=== PATIENT | female | born 1980 | race Two or more races ===

== ENCOUNTER 2024-01-14 10:12 | Emergency (ER) | payer MEDICAID, OTHER ==
[~2024-01-14] VITALS: Ht 157.5 cm; Wt 69.2 kg
[2024-01-14 11:23] LABS: Urine Bacteria FEW /hpf (None Seen); Urine Blood Negative /uL (Negative); Urine Clarity Clear (Clear); Urine Color Yellow (Yellow); Urine Mucus FEW (None Seen); Urine Protein, UAD Negative (Negative); Urine Specific Gravity 1.027 (1.001-1.035); Urine Urobilinogen Normal (Negative); Urine WBC 1 /hpf (0 - 5); Urine pH 5.5 (5.0-9.0)
[2024-01-14 12:34] VITALS: BP 158/84; PULSE 60; RESP 18; O2SAT 99
== END 2024-01-14 12:37 | disposition home or self-care (01) ==
LOC: ER 10:12
DX: R10.9 Unspecified abdominal pain (principal); Z98.890 Other specified postprocedural states
CPT/HCPCS: 74176; 81001; 81025

== ENCOUNTER 2024-05-28 08:50 | Inpatient (IN) | payer MEDICAID ==
[~2024-05-28] VITALS: Ht 160 cm; Wt 78.7 kg
--- NOTE | 2024-05-28 09:33 | ED.PDOC ---
GI ASSESSMENT HPI Comments 43-year-old female presents with a chief complaint of abdominal pain x onset 2 days. Patient states that her abdomen pain is localized to her epigastric region, nonradiating, and describes as cramping sensation. Patient denies any nausea, vomiting, diarrhea, rectal bleeding, or hemoptysis. Patient also denies any injuries or trauma prior to onset of symptoms. Chief Complaint: Abdominal Pain Time Seen by MD: 08:57 Primary Care Provider: DARIN Rodriguez Notes: Medications, Allergies Allergies: Coded Allergies: NO KNOWN ALLERGIES (Unverified , 01/14/24) Information Source: Patient Mode of Arrival: Ambulatory Timing: Days Duration: Since onset Prehospital treatment: None Quality: Aching Vomitus: None Stool: Normal Severity: Moderate Recent: None Recent Hx of: None Pain Location: Epigastric Associated sign and symptoms: Abdominal Pain Past Medical History PAST MEDICAL HISTORY: Denies Surgical History: , Hysterectomy, Tonsillectomy [employer] History: No Pertinent [employer] History Family History Family History: Family hx of DM, Family hx of heart francisco Family History (Other): Liver disease Social History Smoker: Non-Smoker Alcohol: Denies ETOH Use Drugs: Denies Drug Use Lives In: Other Constitutional: denies: chills, diaphoresis, fatigue, fever, malaise, sweats, weakness, others EENTM: denies: blurred vision, double vision, ear bleeding, ear discharge, ear drainage, ear pain, ear ringing, eye pain, eye redness, hearing loss, mouth pain, mouth swelling, nasal discharge, nose bleeding, nose congestion, nose pain, photophobia, tearing, throat pain, throat swelling, voice changes, others Respiratory: denies: cough, hemoptysis, orthopnea, SOB at rest, shortness of breath, SOB with excertion, stridor, wheezing, others Cardiovascular: denies: chest pain, dizzy spells, diaphoresis, Dyspnea on exertion, edema, irregular heart beat, left arm pain, lightheadedness, palpitations, PND, syncope, others Gastrointestinal: reports: abdominal pain; denies: abdomen distended, blood streaked bowels, constipated, diarrhea, dysphagia, difficulty swallowing, hematemesis, melena, nausea, poor appetite, poor fluid intake, rectal bleeding, rectal pain, vomiting, others Genitourinary: denies: abnormal vagina bleeding, burning, dyspareunia, dysuria, flank pain, frequency, hematuria, incontinence, pain, , vagina discharge, urgency, others Neurological: denies: dizziness, fainting, headache, left sided numbness, left sided weakness, numbness, paresthesia, pre-existing deficit, right sided numbness, right sided weakness, seizure, speech problems, tingling, tremors, weakness, others Musculoskeletal: denies: back pain, gout, joint pain, joint swelling, muscle pain, muscle stiffness, neck pain, others Integumetry: denies: bruises, change in color, change in hair/nails, dryness, laceration, lesions, lumps, rash, wounds, others Allergic/Immunocompromised: denies: Difficulty Healing, Frequent Infections, Hives, Itching, others Hematologic/Lymphatic: denies: anemia, blood clots, easy bleeding, easy bruising, swollen glands, others Endocrine: denies: excessive hunger, excessive sweating, excessive thirst, excessive urination, flushing, intolerance to cold, intolerance to heat, unexplained weight gain, unexplained weight loss, others Psychiatric: denies: anxiety, bipolar disorder, depression, hopeless, panic disorder, schizophrenia, sleepless, suicidal, others All Other Systems: Reviewed and Negative Physical Exam General Appearance: Moderate Distress, Normal HEENT: Normal ENT Inspection, Pharynx Normal, TMs Normal Neck: Full Range of Motion, Non-Tender, Normal, Normal Inspection Respiratory: Chest Non-Tender, Lungs Clear, No Accessory Muscle Use, No Respiratory Distress, Normal Breath Sounds Cardiovascular: No Edema, No JVD, No Murmur, No Gallop, Normal Peripheral Pulses, Regular Rate/Rhythm Breast Exam: Deferred Gastrointestinal: No Organomegaly, Non Tender, No Pulsatile Mass, Normal Bowel Sounds, Soft Genitalia: Deferred Pelvic: Deferred Rectal: Deferred Extremities: No calf tenderness, Normal capillary refill, Normal inspection, Normal range of motion, Non-tender, No pedal edema Musculoskeletal : Apperance: Normal Neurologic: Alert, knife glazer II-XII nml as Tested, No Motor Deficits, Normal Affect, Normal Mood, No Sensory Deficits Cerebellar Function: Normal Reflexes: Normal Skin: Dry, Normal Color, Warm Peripheral Pulses: 3+ Radial (R), 3+ Radial (L) Lymphatic: No Adenopathy Was a procedure done? Was a procedure done?: No GI differential Dx Differential Diagnosis: Constipation, Diverticular disease, Esophagitis, Gastritis/PUD, Gastroenteritis X-Ray, Labs, Meds, VS Vital Signs Date Time Temp Pulse Resp B/P (MAP) Pulse Ox O2 Delivery O2 Flow Rate FiO2 05/28/24 09:06 97.2 60 19 133/85 (101) 99 Lab Test 05/28/24 10:30 05/28/24 09:39 Range/Units Urine Color Yellow Yellow Urine Clarity Clear Clear Urine pH 5.5 5.0-9.0 Urine Specific [place] 1.027 1.001-1.035 Urine Protein Negative Negative Urine Ketones Negative Negative Urine Blood Negative Negative /uL Urine Nitrite Negative Negative Urine Bilirubin Negative Negative Urine Urobilinogen Normal Negative mg/dL Urine Leukocyte Esterase Trace Negative /uL Urine RBC 1 0 - 4 /hpf Urine Microscopic WBC 2 0-5 /HPF Urine Squamous Epithelial Cells Few <5 /hpf Urine Bacteria Few H None Seen /hpf Urine Mucus Few None Seen Urine Glucose Normal Normal mg/dL Urine Test Negative Negative White Blood Count 8.7 4.4-10.8 10^3/uL Red Blood Count 4.98 4.0-5.20 10^6/uL Hemoglobin 14.7 12.2-16.2 g/dL Hematocrit 44.0 36.0-46.0 % Mean Corpuscular Volume 88.2 80.0-100.0 fL Mean Corpuscular Hemoglobin 29.4 28.0-32.0 pg Mean Corpuscular Hemoglobin Concent 33.3 32.0-36.0 g/dL Red Cell Distribution Width 13.1 11.8-14.3 % Platelet Count 364 140-450 10^3/uL Mean Platelet Volume 8.9 6.9-10.8 fL Neutrophils (%) (Auto) 53.6 37.0-80.0 % Lymphocytes (%) (Auto) 31.1 10.0-50.0 % Monocytes (%) (Auto) 6.4 0.0-12.0 % Eosinophils (%) (Auto) 8.4 H 0.0-7.0 % Basophils (%) (Auto) 0.5 0.0-2.0 % Neutrophils # (Auto) 4.6 1.6-8.6 10 ^3/uL Lymphocytes # (Auto) 2.7 0.4-5.4 10 ^3/uL Monocytes # (Auto) 0.6 0-1.3 10 ^3/uL Eosinophils # (Auto) 0.7 0-0.8 10 ^3/uL Basophils # (Auto) 0 0-0.2 10 ^3/uL Nucleated Red Blood Cells 0.2 % Sodium Level 139 136-145 mmol/L Potassium Level 4.5 3.5-5.1 mmol/L Chloride Level 107 98-107 mmol/L Carbon Dioxide Level 23 20-31 mmol/L Anion Gap 9 5-15 Blood Urea Nitrogen 11 9-23 mg/dL Creatinine 0.60 0.550-1.02 mg/dL Glomerular Filtration Rate Calc 116 >90 mL/min BUN/Creatinine Ratio 18.3 10.0-20.0 Serum Glucose 97 74-106 mg/dL Calcium Level 9.4 8.7-10.4 mg/dL Patient alert. Complaining of abdominal discomfort. Ambulating. Vitals stable. Answering all questions. Abdomen is soft nontender. Possible gastritis. Explained to the patient. Continue monitoring. Time of 1ST Reevaluation: 09:35 Reevaluation 1ST: Unchanged Patient Education/Counseling: Diagnosis, Treatment, Prognosis Family Education/Counseling: Diagnosis, Treatment, Prognosis Departure 1 Departure Time of Disposition: 09:36 Impression: Primary Impression: Nonspecific abdominal pain Additional Impression: Gastritis Qualified Codes: K29.00 - Acute gastritis without bleeding Disposition: ADMITTED INPATIENT Admit to: Med Surg Condition: Guarded Critical Care Note Critical Care Time?: No Stability Stability form required: No Heart Score Heart Score: Heart Score Response (Comments) Value History N/A 0 EKG N/A 0 Age N/A 0 Risk Factors N/A 0 Troponin N/A 0 Total 0 I personally scribed for MAIKOL JAIN MD ([email or web address]) on 05/28/24 at 09:33. E lectronically submitted by Marc Forte ([email or web address]). MAIOKL JAIN MD May 28, 2024 09:33
[2024-05-28 10:16] LABS: Basophils # (auto) 0 10 ^3/uL (0-0.2); Basophils % (auto) 0.5 % (0.0-2.0); Eosinophils # (auto) 0.7 10 ^3/uL (0-0.8); Eosinophils % (auto) 8.4 % (0.0-7.0); Hemoglobin 14.7 g/dL (12.2-16.2); Lymphocytes # (auto) 2.7 10 ^3/uL (0.4-5.4); Lymphocytes % (auto) 31.1 % (10.0-50.0); Mean Corpuscular Hemoglobin 29.4 pg (28.0-32.0); Mean Corpuscular Hgb Conc. 33.3 g/dL (32.0-36.0); Mean Corpuscular Volume 88.2 fL (80.0-100.0); Monocytes # (auto) 0.6 10 ^3/uL (0-1.3); Monocytes % (auto) 6.4 % (0.0-12.0); Neutrophils # (auto) 4.6 10 ^3/uL (1.6-8.6); Neutrophils % (auto) 53.6 % (37.0-80.0); Nucleated Red Blood Cells % 0.2 %; Platelet Count (auto) 364 10^3/uL (140-450); Red Blood Cells 4.98 10^6/uL (4.0-5.20); Red Cell Distribution Width 13.1 % (11.8-14.3); White Blood Cell 8.7 10^3/uL (4.4-10.8)
[2024-05-28 10:23] LABS: Potassium 4.5 mmol/L (3.5-5.1); Sodium 139 mmol/L (136-145)
[2024-05-28 10:24] LABS: Anion Gap 9 (5-15); Calcium 9.4 mg/dL (8.7-10.4); Carbon Dioxide 23 mmol/L (20-31)
[2024-05-28 10:29] LABS: BUN/Creatinine Ratio 18.3 (10.0-20.0); Blood Urea Nitrogen 11 mg/dL (9-23); Glucose 97 mg/dL (74-106)
[2024-05-28 10:39] LABS: Chloride 107 mmol/L (98-107)
[2024-05-28 10:58] LABS: Urine Bacteria FEW /hpf (None Seen); Urine Blood Negative /uL (Negative); Urine Clarity Clear (Clear); Urine Color Yellow (Yellow); Urine Mucus FEW (None Seen); Urine Protein, UAD Negative (Negative); Urine Specific Gravity 1.027 (1.001-1.035); Urine Squamous Epithelial Cell FEW /hpf (<5); Urine Urobilinogen Normal (Negative); Urine WBC 2 /HPF (0-5); Urine pH 5.5 (5.0-9.0)
--- NOTE | 2024-05-28 11:24 | DVH ---
Procedure: XY CHEST XRAY 1 VIEW 05/28/2024 11:10 AM Indication: r/o serious pathology Comparison: None TECHNIQUE: XY CHEST XRAY 1 VIEW FINDINGS: Medical devices: None. Cardiomediastinal: The heart is normal in size. Pulmonary vasculature is within normal limits. Athero sclerotic calcification of the aortic arch noted. Lungs: No focal pulmonary opacity is seen. The costophrenic angles are clear. No pneumothorax. Bones/soft tissues: No acute abnormality is noted. IMPRESSION: 1. No acute cardiopulmonary disease.
--- NOTE | 2024-05-28 12:00 | DVH ---
Procedure: CT CT AB PEL WO CON-NO ORAL OR IV 05/28/2024 11:02 AM Indication: gastritisvsstone Comparison Study: CT CT AB PEL WO CON-NO ORAL OR IV on DOS: 01/14/24 Technique: Axial images were obtained and reformatted in coronal and sagittal planes. All CT scans at this medical facility are performed using dose modulation techniques as appropriate t o a performed exam including the following: Automated exposure control was utilized; adjustment of th e MA and/or KV according to patient size; and use of iterative reconstruction technique. CT Dose: CTDI volume is 21.68 mGy. Dose-length product is 1146.55 mGy*cm FINDINGS: Lower Chest: Unremarkable. Hepatobiliary: Hepatomegaly and hepatic steatosis. Gallbladder is moderately distended and contains n umerous subcentimeter gallstones. The common bile duct is borderline dilated Spleen: Unremarkable. Pancreas: Unremarkable. Adrenal Glands: Unremarkable. tract: The kidneys are normal in size bilaterally without hydronephrosis or nephrolithiasis. The urinary bladder is unremarkable. GI tract: The stomach is grossly normal in appearance. No evidence of small bowel obstruction. The la rge bowel is unremarkable. The appendix is normal. Lymphatics: No mesenteric, retroperitoneal or periportal lymphadenopathy. Vasculature: The abdominal aorta is normal in in caliber. Pelvic Organs: Unremarkable Bones/soft tissues: No acute osseous abnormality. A small fat-containing umbilical hernia noted. Other: None. IMPRESSION: 1. Cholelithiasis and suggestion of choledocholithiasis. No signs of cholecystitis. Recommend furth er evaluation with gallbladder ultrasound and correlation with bilirubin level. If there is concern f or choledocholithiasis, further evaluation with MRCP could be helpful. 2. Hepatomegaly and hepatic steatosis.
[2024-05-28] MEDS ORDERED: ONDANSETRON HCL 4 MG/2 ML VIAL IV PRN (13:45)
[2024-05-28] MEDS ORDERED: DOCUSATE SOD 100 MG CAP PO PRN (13:45)
--- NOTE | 2024-05-28 13:59 | DVHHP2 ---
History of Present Illness Reason for Visit: Abdominal pain History of Present Illness Isadora Cameron, is a 43-year-old female with no significant past medical history, who comes to the hospital with complaints of abdominal pain for 2 days. Patient states that she has been experiencing increasing abdominal pain over the past few weeks. She knows that she has gallstones, but they haven't been bothering her until recently. Past Surgical History: (x 2), Hysterectomy, Tonsillectomy Smoke: No ALCOHOL: none Drugs: None Lives: Other ([facility]) Review of Systems Constitutional: No: Fever, Chills, Sweats, Weakness, Malaise, Other Eyes: No: Pain, Vision change, Conjunctivae inflammation, Eyelid inflammation, Other, Redness ENT: No: Ear pain, Ear discharge, Nose pain, Nose discharge, Nose congestion, Mouth pain, Mouth swelling, Throat pain, Throat swelling, Other Respiratory: No: Cough, Dry, Shortness of breath, SOB with excertion, Wheezing, Hemoptysis, Pleuritic Pain, Sputum, Wheezing, Other Cardiovascular: No: Chest Pain, Palpitations, Orthopnea, Paroxysmal Noc. Dyspnea, Edema, Lt Headedness, Other Gastrointestinal: Abdominal Pain; No: Nausea, Vomiting, Diarrhea, Constipation, Melena, Hematochezia, Other Genitourinary: No Dysuria, No Frequency, No Incontinence, No Hematuria, No Retention, No Other Musculoskeletal: No: other, neck pain, shoulder pain, arm pain, back pain, hand pain, leg pain, foot pain Skin: No: Rash, Lesions, Jaundice, Bruising, Other Neurological: No: Weakness, Numbness, Incoordination, Change in speech, Confusion, Seizures, Other Allergies: Coded Allergies: NO KNOWN ALLERGIES (Unverified , 01/14/24) Exam Vital Signs Vital Signs Date Time Temp Pulse Resp B/P (MAP) Pulse Ox O2 Delivery O2 Flow Rate FiO2 05/28/24 09:06 97.2 60 19 133/85 (101) 99 General Appearance: Alert, Oriented X3, Cooperative, mild distress HEENT: Atraumatic, PERRLA, Other (dry mucous mem) Respiratory: Clear to auscultation, Normal air movement Cardiovascular: Regular rate, Normal S1, Normal S2, No murmurs Abdominal: Normal bowel sounds, Soft, Other (Abdomen is tender) Extremities: No clubbing, No cyanosis, No edema, Normal pulses, No tenderness /swelling Skin: No rashes, No breakdown, No significant lesion Neuro: Normal gait, Normal speech, Strength at 5/5 X4 ext Psych/Mental Status: Mental status NL, Mood NL Labs/Xrays Labs Test 05/28/24 10:30 05/28/24 09:39 Range/Units Urine Color Yellow Yellow Urine Clarity Clear Clear Urine pH 5.5 5.0-9.0 Urine Specific [place] 1.027 1.001-1.035 Urine Protein Negative Negative Urine Ketones Negative Negative Urine Blood Negative Negative /uL Urine Nitrite Negative Negative Urine Bilirubin Negative Negative Urine Urobilinogen Normal Negative mg/dL Urine Leukocyte Esterase Trace Negative /uL Urine RBC 1 0 - 4 /hpf Urine Microscopic WBC 2 0-5 /HPF Urine Squamous Epithelial Cells Few <5 /hpf Urine Bacteria Few H None Seen /hpf Urine Mucus Few None Seen Urine Glucose Normal Normal mg/dL Urine Test Negative Negative White Blood Count 8.7 4.4-10.8 10^3/uL Red Blood Count 4.98 4.0-5.20 10^6/uL Hemoglobin 14.7 12.2-16.2 g/dL Hematocrit 44.0 36.0-46.0 % Mean Corpuscular Volume 88.2 80.0-100.0 fL Mean Corpuscular Hemoglobin 29.4 28.0-32.0 pg Mean Corpuscular Hemoglobin Concent 33.3 32.0-36.0 g/dL Red Cell Distribution Width 13.1 11.8-14.3 % Platelet Count 364 140-450 10^3/uL Mean Platelet Volume 8.9 6.9-10.8 fL Neutrophils (%) (Auto) 53.6 37.0-80.0 % Lymphocytes (%) (Auto) 31.1 10.0-50.0 % Monocytes (%) (Auto) 6.4 0.0-12.0 % Eosinophils (%) (Auto) 8.4 H 0.0-7.0 % Basophils (%) (Auto) 0.5 0.0-2.0 % Neutrophils # (Auto) 4.6 1.6-8.6 10 ^3/uL Lymphocytes # (Auto) 2.7 0.4-5.4 10 ^3/uL Monocytes # (Auto) 0.6 0-1.3 10 ^3/uL Eosinophils # (Auto) 0.7 0-0.8 10 ^3/uL Basophils # (Auto) 0 0-0.2 10 ^3/uL Nucleated Red Blood Cells 0.2 % Sodium Level 139 136-145 mmol/L Potassium Level 4.5 3.5-5.1 mmol/L Chloride Level 107 98-107 mmol/L Carbon Dioxide Level 23 20-31 mmol/L Anion Gap 9 5-15 Blood Urea Nitrogen 11 9-23 mg/dL Creatinine 0.60 0.550-1.02 mg/dL Glomerular Filtration Rate Calc 116 >90 mL/min BUN/Creatinine Ratio 18.3 10.0-20.0 Serum Glucose 97 74-106 mg/dL Calcium Level 9.4 8.7-10.4 mg/dL TECHNIQUE: XY CHEST XRAY 1 VIEW FINDINGS: Medical devices: None. Cardiomediastinal: The heart is normal in size. Pulmonary vasculature is within normal limits. Atherosclerotic calcification of the aortic arch noted. Lungs: No focal pulmonary opacity is seen. The costophrenic angles are clear. No pneumothorax. Bones/soft tissues: No acute abnormality is noted. IMPRESSION: 1. No acute cardiopulmonary disease. Procedure: CT CT AB PEL WO CON-NO ORAL OR IV 05/28/2024 11:02 AM FINDINGS: Lower Chest: Unremarkable. Hepatobiliary: Hepatomegaly and hepatic steatosis. Gallbladder is moderately distended and contains numerous subcentimeter gallstones. The common bile duct is borderline dilated Spleen: Unremarkable. Pancreas: Unremarkable. Adrenal Glands: Unremarkable. tract: The kidneys are normal in size bilaterally without hydronephrosis or nephrolithiasis. The urinary bladder is unremarkable. GI tract: The stomach is grossly normal in appearance. No evidence of small bowel obstruction. The large bowel is unremarkable. The appendix is normal. Lymphatics: No mesenteric, retroperitoneal or periportal lymphadenopathy. Vasculature: The abdominal aorta is normal in in caliber. Pelvic Organs: Unremarkable Bones/soft tissues: No acute osseous abnormality. A small fat-containing umbilical hernia noted. Other: None. IMPRESSION: 1. Cholelithiasis and suggestion of choledocholithiasis. No signs of cholecystitis. Recommend further evaluation with gallbladder ultrasound and correlation with bilirubin level. If there is concern for choledocholithiasis, further evaluation with MRCP could be helpful. 2. Hepatomegaly and hepatic steatosis. Assessment/Plan Assessment/Plan Assessment: Cholelithiasis, Possible Choledocholithiasis, Hepatomegaly, Hepatic steatosis, Plan: Admit to Med-Surg, GI consult, Gallbladder ultrasound, Consider MRCP, IV hydration, Clear liquid diet, Pain management, CMP, Plan discussed with: Patient My Orders Orders - DEMETRIUS LEAL Procedure Category Date Status Time Gallbladder US 05/28/24 Logged 13:18 Admit ADMIT 05/28/24 Verified 13:41 Code Status CODE 05/28/24 Verified 13:41 Sodium Chloride Lock PHA 05/28/24 Verified (Saline Lock Ns) 14:00 Hydrocodone-Acet PHA 05/28/24 Verified 5/325mg Tab ([place] 13:45 Ondansetron Hcl PHA 05/28/24 Verified (Zofran) 13:45 Docusate Sodium PHA 05/28/24 Verified Capsule ([place]ace 13:45 Complete Blood Count LAB 05/29/24 Verified 04:00 Comprehensive LAB 05/29/24 Verified Metabolic Panel 04:00 Condition: Serious SULY 05/28/24 Verified 13:41 Acetaminophen Tablet PHA 05/28/24 Verified (Tylenol Tablet) 13:45 * Gi [facility]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
--- NOTE | 2024-05-28 14:27 | DVH ---
INDICATION: Possible choledocholithiasis TECHNIQUE: Multiple real-time sonographic images of the abdomen were obtained. COMPARISON: None FINDINGS: Hepatic parenchyma suggests steatosis The liver measures 17.2 cm. No intrahepatic biliary ductal dilatation is noted. The gallbladder wall measures 0.14 cm cm and is unremarkable. Cholelithiasis is noted which mobile. There is also sludge in the gallbladder. The common duct measures 0.93 cm and is dilated.. No per icholecystic fluid is noted. Negative ultrasound Barron's sign The right kidney measures 9.3 cm. No hydronephrosis. The pancreas is normal. IMPRESSION: 1. Cholelithiasis and sludge in the gallbladder with mild dilatation of the common bile duct and a ne gative ultrasound barron's sign. 2. Right kidney measures 9.3 cm in length. 3. Liver measures 17.2 cm with mild steatosis.
[2024-05-28 14:39] LABS: Alanine Aminotransferase 25 U/L (7-40); Albumin 4.5 g/dL (3.2-4.8); Anion Gap 7 (5-15); Aspartate Aminotransferase 17 U/L (13-40); BUN/Creatinine Ratio 14.5 (10.0-20.0); Bilirubin, Total 0.7 mg/dL (0.2-1.0); Calcium 9.5 mg/dL (8.7-10.4); Carbon Dioxide 25 mmol/L (20-31); Glucose 92 mg/dL (74-106); Sodium 140 mmol/L (136-145); Total Protein 7.3 g/dL (5.7-8.2)
[2024-05-28 14:45] LABS: Alkaline Phosphatase 127 U/L (46-116); Blood Urea Nitrogen 9 mg/dL (9-23); Chloride 108 mmol/L (98-107)
[2024-05-28 14:54] VITALS: BP 142/77; PULSE 53; RESP 18; TEMP 98; O2SAT 99
[2024-05-28 16:49] VITALS: BP 142/84; PULSE 55; RESP 18; TEMP 97.6; O2SAT 100
[2024-05-28] MEDS: SODIUM CHLOR 0.9% PF (SALINE LOCK) 10ML VIAL/SYR IV SCH (18:43)
[2024-05-28 20:00] VITALS: BP 147/76; PULSE 56; RESP 17; TEMP 97.6; O2SAT 100
[2024-05-28 22:47] VITALS: BP 134/76; PULSE 57; RESP 20; TEMP 98; O2SAT 97
[2024-05-28] MEDS: HYDROcodone-ACET 5/325MG TAB PO PRN (23:30)
[2024-05-28] MEDS: ACETAMINOPHEN 325 MG TAB PO PRN (23:38)
[2024-05-29 01:00] VITALS: BP 111/66; PULSE 57; RESP 19; TEMP 97.4; O2SAT 94
[2024-05-29 01:25] VITALS: BP 141/88; PULSE 76; RESP 19; TEMP 97.6; O2SAT 96
[2024-05-29 05:00] VITALS: BP 108/70; PULSE 60; RESP 17; TEMP 97.3; O2SAT 94
[2024-05-29 05:48] LABS: Basophils # (auto) 0 10 ^3/uL (0-0.2); Basophils % (auto) 0.4 % (0.0-2.0); Eosinophils # (auto) 0.7 10 ^3/uL (0-0.8); Eosinophils % (auto) 9.2 % (0.0-7.0); Hematocrit 42.5 % (36.0-46.0); Hemoglobin 14.1 g/dL (12.2-16.2); Lymphocytes % (auto) 26.6 % (10.0-50.0); Mean Corpuscular Hemoglobin 29.3 pg (28.0-32.0); Mean Corpuscular Hgb Conc. 33.2 g/dL (32.0-36.0); Mean Corpuscular Volume 88.1 fL (80.0-100.0); Monocytes # (auto) 0.7 10 ^3/uL (0-1.3); Monocytes % (auto) 9.1 % (0.0-12.0); Neutrophils # (auto) 4.1 10 ^3/uL (1.6-8.6); Neutrophils % (auto) 54.7 % (37.0-80.0); Platelet Count (auto) 340 10^3/uL (140-450); Red Blood Cells 4.82 10^6/uL (4.0-5.20); Red Cell Distribution Width 12.9 % (11.8-14.3); White Blood Cell 7.4 10^3/uL (4.4-10.8)
[2024-05-29 06:07] LABS: Alanine Aminotransferase 24 U/L (7-40); Albumin 4.1 g/dL (3.2-4.8); Alkaline Phosphatase 115 U/L (46-116); Anion Gap 9 (5-15); Aspartate Aminotransferase 15 U/L (13-40); BUN/Creatinine Ratio 16.4 (10.0-20.0); Blood Urea Nitrogen 10 mg/dL (9-23); Calcium 9.2 mg/dL (8.7-10.4); Carbon Dioxide 23 mmol/L (20-31); Glucose 91 mg/dL (74-106); Potassium 3.8 mmol/L (3.5-5.1); Sodium 140 mmol/L (136-145); Total Protein 6.4 g/dL (5.7-8.2)
[2024-05-29 06:20] LABS: Chloride 108 mmol/L (98-107)
[2024-05-29 09:00] VITALS: BP 139/76; PULSE 61; RESP 16; TEMP 97.6; O2SAT 93
--- NOTE | 2024-05-29 11:24 | DVHCONRES ---
Date Seen: May 29, 2024 Resident Creating Document: MELY BAKER RESIDENT Referring Physician bogdan AVENDANO Reason for Consultation Choledocholithiasis? History of Present Illness Patient is a 43 year female with came to the hospital with a chief complaint of abdominal pain for the past 3-4 days. Abdominal pain is located in upper epigastric region, pain worsens with food intake. GI consultation was done for rule out choledocholithiasis. Gallbladder showed Cholelithiasis and sludge in the gallbladder with mild dilatation of the common bile duct and a negative ultrasound chang's sign. Patient denied any other complaints including nausea, vomiting, diarrhea, fever, chills, chest pain, any other symptoms. Past medical history: Gallstone Past surgical history: , hysterectomy, tonsillectomy Personal history: Denying alcohol use, nonsmoker, no drug use. Allergies: Coded Allergies: NO KNOWN ALLERGIES (Unverified , 01/14/24) Current Medications Current Medications Medications (Trade) Dose Ordered Sig/Jenniffer Route PRN Reason Start Time Stop Time Status Last Admin Sodium Chloride (Saline Lock Ns) 10 ml Q8HR IV 05/28/24 14:00 05/29/24 05:31 Acetaminophen/ Hydrocodone Bitart ([place] 5/325MG Tab) 1 tab Q4HP PRN PO MODERATE PAIN (4-6 PAIN SCALE) 05/28/24 13:45 Ondansetron HCl (Zofran) 4 mg Q4HP PRN IV NAUSEA / VOMITING 05/28/24 13:45 Docusate Sodium (Colace Capsule) 100 mg BIDPRN PRN PO FOR CONSTIPATION 05/28/24 13:45 Acetaminophen (Tylenol Tablet) 650 mg Q6HP PRN PO PAIN SCALE 1-3 OR TEMP>100.4 05/28/24 13:45 05/29/24 10:30 Review of Systems Eyes: No Pain, No Vision change, No Conjunctivae inflammation, No Eyelid inflammation, No Other, No Redness ENT: No Ear pain, No Ear discharge, No Nose pain, No Nose discharge, No Nose congestion, No Mouth pain, No Mouth swelling, No Throat pain, No Throat swelling, No Other Cardiovascular: No Chest Pain, No Palpitations, No Orthopnea, No Paroxysmal Noc. Dyspnea, No Edema, No Lt Headedness, No Other Respiratory: No Cough, No Dry, No Shortness of breath, No SOB with excertion, No Wheezing, No Hemoptysis, No Pleuritic Pain, No Sputum, No Other Gastrointestinal: No Nausea, No Vomiting, Abdominal Pain, No Diarrhea, No Constipation, No Melena, No Hematochezia, No Other Genitourinary: No Dysuria, No Frequency, No Incontinence, No Hematuria, No Retention, No Other Musculoskeletal: No other, No neck pain, No shoulder pain, No arm pain, No back pain, No hand pain, No leg pain, No foot pain Skin: No Rash, No Lesions, No Jaundice, No Bruising, No Other Vital Signs Vital Signs Date Time Temp Pulse Resp B/P (MAP) Pulse Ox O2 Delivery O2 Flow Rate FiO2 05/29/24 09:00 97.6 61 16 139/76 (97) 93 97.6 05/28/24 14:54 Room Air* 0 21 Physical Exam General Appearance: Cooperative. Well developed. Well nourished. NAD Head Exam: Normal inspection Neck Exam: Normal inspection. Non-tender. Normal alignment Pulmonary/Respiratory: Chest non-tender. Clear bilateral breath sounds Cardiovascular/Chest: Regular rate and rhythm. No murmurs. No JVD. Peripheral Pulses: 2+ Radial (R). 2+ Radial (L). 2+ Pedal (R). 2+ Pedal (L) Abdominal Exam: Normal bowel sounds. Soft. Nontender. No hepatospenomegaly. No masses Ankle Exam: Negative ankle edema Lower extremities: Negative lower extremity edema Neuro/Mental Status: A&O x4. Coherent Thoughts/Psych: Normal thought pattern. Appropriate mood and affect. Good judgement and insight Appearance: In no acute distress Skin Exam: Normal inspection. Normal color. Warm. Dry Labs/Diagnostic Data Labs Test 05/29/24 05:10 05/28/24 10:30 Range/Units White Blood Count 7.4 4.4-10.8 10^3/uL Red Blood Count 4.82 4.0-5.20 10^6/uL Hemoglobin 14.1 12.2-16.2 g/dL Hematocrit 42.5 36.0-46.0 % Mean Corpuscular Volume 88.1 80.0-100.0 fL Mean Corpuscular Hemoglobin 29.3 28.0-32.0 pg Mean Corpuscular Hemoglobin Concent 33.2 32.0-36.0 g/dL Red Cell Distribution Width 12.9 11.8-14.3 % Platelet Count 340 140-450 10^3/uL Mean Platelet Volume 8.6 6.9-10.8 fL Neutrophils (%) (Auto) 54.7 37.0-80.0 % Lymphocytes (%) (Auto) 26.6 10.0-50.0 % Monocytes (%) (Auto) 9.1 0.0-12.0 % Eosinophils (%) (Auto) 9.2 H 0.0-7.0 % Basophils (%) (Auto) 0.4 0.0-2.0 % Neutrophils # (Auto) 4.1 1.6-8.6 10 ^3/uL Lymphocytes # (Auto) 2.0 0.4-5.4 10 ^3/uL Monocytes # (Auto) 0.7 0-1.3 10 ^3/uL Eosinophils # (Auto) 0.7 0-0.8 10 ^3/uL Basophils # (Auto) 0 0-0.2 10 ^3/uL Nucleated Red Blood Cells 0.0 % Sodium Level 140 136-145 mmol/L Potassium Level 3.8 3.5-5.1 mmol/L Chloride Level 108 H 98-107 mmol/L Carbon Dioxide Level 23 20-31 mmol/L Anion Gap 9 5-15 Blood Urea Nitrogen 10 9-23 mg/dL Creatinine 0.61 0.550-1.02 mg/dL Glomerular Filtration Rate Calc 115 >90 mL/min BUN/Creatinine Ratio 16.4 10.0-20.0 Serum Glucose 91 74-106 mg/dL Calcium Level 9.2 8.7-10.4 mg/dL Total Bilirubin 1.0 0.2-1.0 mg/dL Aspartate Amino Transferase (AST) 15 13-40 U/L Alanine Aminotransferase (ALT) 24 7-40 U/L Alkaline Phosphatase 115 46-116 U/L Total Protein 6.4 5.7-8.2 g/dL Albumin 4.1 3.2-4.8 g/dL Urine Color Yellow Yellow Urine Clarity Clear Clear Urine pH 5.5 5.0-9.0 Urine Specific [place] 1.027 1.001-1.035 Urine Protein Negative Negative Urine Ketones Negative Negative Urine Blood Negative Negative /uL Urine Nitrite Negative Negative Urine Bilirubin Negative Negative Urine Urobilinogen Normal Negative mg/dL Urine Leukocyte Esterase Trace Negative /uL Urine RBC 1 0 - 4 /hpf Urine Microscopic WBC 2 0-5 /HPF Urine Squamous Epithelial Cells Few <5 /hpf Urine Bacteria Few H None Seen /hpf Urine Mucus Few None Seen Urine Glucose Normal Normal mg/dL Urine Test Negative Negative Assessment Cholelithiasis Rule out choledocholithiasis Biliary sludge Hepatomegaly with hepatic steatosis Plan/ recommended Dr. Schilling -Ordered MRCP to rule out choledocholithiasis. Reviewed gallbladder ultrasound and CT scan of the abdomen and pelvis. -Clear liquid diet -IV antibiotic with Zosyn -Continue to monitor liver function tests. Liver function non trending. Bilirubin within normal limits. -Gallbladder ultrasound: 1. Cholelithiasis and sludge in the gallbladder with mild dilatation of the common bile duct and a negative ultrasound chang's sign. 2. Right kidney measures 9.3 cm in length.3. Liver measures 17.2 cm with mild steatosis. -CT scan of abdomen pelvis:Cholelithiasis and suggestion of choledocholithiasis Hepatomegaly and hepatic steatosis. Plan discussed with: Patient, Other MELY BAKER RESIDENT May 29, 2024 11:24
--- NOTE | 2024-05-29 12:20 | DVH ---
MRCP history: Cholelithiasis. Rule out choledocholithiasis TECHNIQUE: MR imaging of the abdomen was performed using routine protocol. The following sequences w ere obtained: Three plane localizer Coronal T2 HASTE large FOV/ small FOV Axial T1 Madrigal in and out of phase Axial T2 HASTE and STIR SagittalT2 Fat Sat Precontrast 3-D FLASH Postcontrast 3-D FLASH: Arterial, venous and delayed phases. Coronal MRCP 3D FINDINGS: There are multiple stones in the gallbladder. There is no gallbladder wall thickening. The common bile duct normal in size. There are multiple filling defects seen on MRCP images represen ting stones. Liver and spleen are normal in size without mass No renal masses or hydronephrosis No masses in the adrenal glands. No masses in the pancreas. No dilatation of the pancreatic duct No adenopathy No free fluid. IMPRESSION: 1. Cholelithiasis and choledocholithiasis. No evidence of obstruction at this time
[2024-05-29] MEDS: PIPERACILLIN-TAZOB 3.375GM 100 ML IV SCH (12:40)
[2024-05-29 12:57] VITALS: BP 123/76; PULSE 55; RESP 17; TEMP 97.7; O2SAT 95
--- NOTE | 2024-05-29 13:36 | DVHPN2 ---
Reviewed: Care Plan, H&P, Labs, Medications, Previous Orders, Radiology Changes from previous H/P or p: No Changes Eyes: No Pain, No Vision change, No Conjunctivae inflammation, No Eyelid inflammation, No Other, No Redness ENT: No Ear pain, No Ear discharge, No Nose pain, No Nose discharge, No Nose congestion, No Mouth pain, No Mouth swelling, No Throat pain, No Throat swelling, No Other Cardiovascular: No Chest Pain, No Palpitations, No Orthopnea, No Paroxysmal Noc. Dyspnea, No Edema, No Lt Headedness, No Other Respiratory: No Cough, No Dry, No Shortness of breath, No SOB with excertion, No Wheezing, No Hemoptysis, No Pleuritic Pain, No Sputum, No Other Gastrointestinal: No Nausea, No Vomiting; Abdominal Pain; No Diarrhea, No Constipation, No Melena, No Hematochezia, No Other Genitourinary: No Dysuria, No Frequency, No Incontinence, No Hematuria, No Retention, No Other Musculoskeletal: No other, No neck pain, No shoulder pain, No arm pain, No back pain, No hand pain, No leg pain, No foot pain Skin: No Rash, No Lesions, No Jaundice, No Bruising, No Other Objective Vitals Vital Signs Date Time Temp Pulse Resp B/P (MAP) Pulse Ox O2 Delivery O2 Flow Rate FiO2 05/29/24 12:57 97.7 55 17 123/76 (92) 95 97.7 05/29/24 08:00 Room Air* 0 21 Intake/Output Intake and Output 05/29/24 07:00 Intake Total 480 ml Balance 480 ml Intake Oral 480 ml # Voids 4 Medications Current Medications Medications Dose Ordered Sig/Jenniffer Route Start Time Stop Time Status Last Admin Dose Admin Sodium Chloride 10 ml Q8HR IV 05/28/24 14:00 05/29/24 05:31 10 ML Acetaminophen/ Hydrocodone Bitart 1 tab Q4HP PRN PO 05/28/24 13:45 Ondansetron HCl 4 mg Q4HP PRN IV 05/28/24 13:45 Docusate Sodium 100 mg BIDPRN PRN PO 05/28/24 13:45 Acetaminophen 650 mg Q6HP PRN PO 05/28/24 13:45 05/29/24 10:30 650 MG Piperacillin Sod/ Tazobactam Sod 100 ml @ 25 mls/hr Q8H IV 05/29/24 12:00 05/29/24 12:40 25 MLS/HR Laboratory Results Laboratory Tests 05/29/24 05:10 Chemistry Test 05/28/24 14:06 05/29/24 05:10 Albumin 4.5 g/dL (3.2-4.8) 4.1 g/dL (3.2-4.8) Calcium Level 9.5 mg/dL (8.7-10.4) 9.2 mg/dL (8.7-10.4) Total Protein 7.3 g/dL (5.7-8.2) 6.4 g/dL (5.7-8.2) LFT Test 05/28/24 14:06 05/29/24 05:10 Alanine Aminotransferase (ALT) 25 U/L (7-40) 24 U/L (7-40) Alkaline Phosphatase 127 U/L (46-116) H 115 U/L (46-116) Aspartate Amino Transferase (AST) 17 U/L (13-40) 15 U/L (13-40) Total Bilirubin 0.7 mg/dL (0.2-1.0) 1.0 mg/dL (0.2-1.0) Urinalysis Test 05/28/24 10:30 Urine Color Yellow (Yellow) Urine Clarity Clear (Clear) Urine pH 5.5 (5.0-9.0) Urine Specific [place] 1.027 (1.001-1.035) Urine Protein Negative (Negative) Urine Ketones Negative (Negative) Urine Blood Negative /uL (Negative) Urine Nitrite Negative (Negative) Urine Bilirubin Negative (Negative) Urine Urobilinogen Normal mg/dL (Negative) Urine Leukocyte Esterase Trace /uL (Negative) Urine RBC 1 /hpf (0 - 4) Urine Microscopic WBC 2 /HPF (0-5) Urine Squamous Epithelial Cells Few /hpf (<5) Urine Bacteria Few /hpf (None Seen) H Urine Mucus Few (None Seen) Urine Glucose Normal mg/dL (Normal) Urine Test Negative (Negative) Labs and/or images reviewed: Labs reviewed by me, Image(s) reviewed by me Assessment/Plan Assessment/Plan Right upper quadrant abdominal pain Acute cholelithiasis without cholecystitis: Arnoldo Wood Choledocholithiasis: Consult by GI Dr. Jaimee Schilling. Appreciated PCP Dr Leslie Plan discussed with: Patient Date of Service: May 29, 2024 Billing Provider: VIJAYA WESTBROOK MD Common Visit Codes: [id number] INP/OBS CARE(HIGH) VIJAYA WESTBROOK MD May 29, 2024 13:35
[2024-05-29 21:00] VITALS: BP 126/76; PULSE 61; RESP 18; TEMP 97.6; O2SAT 96
[2024-05-30 01:00] VITALS: BP 104/64; PULSE 51; RESP 17; TEMP 97.4; O2SAT 95
[2024-05-30 05:00] VITALS: BP 110/82; PULSE 69; RESP 18; TEMP 97.6; O2SAT 96
[2024-05-30 09:00] VITALS: BP 121/77; PULSE 72; RESP 16; TEMP 97.7; O2SAT 96
--- NOTE | 2024-05-30 10:35 | DVHPN2 ---
Progress Note Date Seen: May 30, 2024 Resident Creating Document: MELY BAKER RESIDENT Medical Necessity Reason Pt with a Central, PICC or Fol: No Subjective Patient reports: No new complaints Changes from previous H/P or p: No Changes Objective vital signs Vital Sign Date Time Temp Pulse Resp B/P (MAP) Pulse Ox O2 Delivery O2 Flow Rate FiO2 05/30/24 09:00 97.7 72 16 121/77 (92) 96 97.7 05/29/24 20:00 Room Air* 0 21 Total Intake and Output 05/29/24 05/29/24 05/30/24 14:59 22:59 06:59 Intake Total 1460 ml 420 ml Balance 1460 ml 420 ml medications Current Medications Medications Dose Ordered Sig/Jenniffer Route Start Time Stop Time Status Last Admin Dose Admin Sodium Chloride 10 ml Q8HR IV 05/28/24 14:00 05/30/24 04:57 10 ML Acetaminophen/ Hydrocodone Bitart 1 tab Q4HP PRN PO 05/28/24 13:45 Ondansetron HCl 4 mg Q4HP PRN IV 05/28/24 13:45 Docusate Sodium 100 mg BIDPRN PRN PO 05/28/24 13:45 Piperacillin Sod/ Tazobactam Sod 100 ml @ 25 mls/hr Q8H IV 05/29/24 12:00 05/30/24 04:56 25 MLS/HR Acetaminophen 650 mg Q4HPRN PRN PO 05/30/24 10:15 UNV Examination General Appearance: Cooperative. Well developed. Well nourished. NAD Head Exam: Normal inspection Neck Exam: Normal inspection. Non-tender. Normal alignment Pulmonary/Respiratory: Chest non-tender. Clear bilateral breath sounds Cardiovascular/Chest: Regular rate and rhythm. No murmurs. No JVD. Peripheral Pulses: 2+ Radial (R). 2+ Radial (L). 2+ Pedal (R). 2+ Pedal (L) Abdominal Exam: Normal bowel sounds. Soft. Nontender. No hepatospenomegaly. No masses Ankle Exam: Negative ankle edema Lower extremities: Negative lower extremity edema Neuro/Mental Status: A&O x4. Coherent Thoughts/Psych: Normal thought pattern. Appropriate mood and affect. Good judgement and insight Appearance: In no acute distress Skin Exam: Normal inspection. Normal color. Warm. Dry laboratory and microbiology Laboratory Tests 05/29/24 05:10 Test 05/29/24 05:10 Range/Units Serum Glucose 91 74-106 mg/dL Problem List/Assessment/Plan Problem List/Assessment/Plan Cholelithiasis choledocholithiasis, not obstructing Biliary sludge Hepatomegaly with hepatic steatosis Plan/ recommended Dr. Schilling MRCP: Cholelithiasis and choledocholithiasis. No evidence of obstruction at this time Recommend outpatient follow up for ERCP where facility has ERCP service -Clear liquid diet, advance as tolerated -Continue to monitor liver function tests. Liver function non trending. Bilirubin within normal limits. -Gallbladder ultrasound: 1. Cholelithiasis and sludge in the gallbladder with mild dilatation of the common bile duct and a negative ultrasound chang's sign. 2. Right kidney measures 9.3 cm in length.3. Liver measures 17.2 cm with mild steatosis. -CT scan of abdomen pelvis:Cholelithiasis and suggestion of choledocholithiasis Hepatomegaly and hepatic steatosis. Plan discussed with: Patient, Other My Orders My Orders Orders - MELY BAKER RESIDENT Procedure Category Date Status Time Piperacillin-Tazob PHA 05/29/24 In Process 3.375gm (Zosyn 3.375g 12:00 Complete Blood Count LAB 05/30/24 Logged 09:00 Comprehensive LAB 05/30/24 Logged Metabolic Panel 09:00 Acetaminophen Tablet PHA 05/30/24 Logged (Tylenol Tablet) 10:15 MELY BAKER RESIDENT May 30, 2024 10:35
--- NOTE | 2024-05-30 10:49 | DVHPN2 ---
Reviewed: Care Plan, H&P, Labs, Medications, Previous Orders, Radiology Changes from previous H/P or p: No Changes Eyes: No Pain, No Vision change, No Conjunctivae inflammation, No Eyelid inflammation, No Other, No Redness ENT: No Ear pain, No Ear discharge, No Nose pain, No Nose discharge, No Nose congestion, No Mouth pain, No Mouth swelling, No Throat pain, No Throat swelling, No Other Cardiovascular: No Chest Pain, No Palpitations, No Orthopnea, No Paroxysmal Noc. Dyspnea, No Edema, No Lt Headedness, No Other Respiratory: No Cough, No Dry, No Shortness of breath, No SOB with excertion, No Wheezing, No Hemoptysis, No Pleuritic Pain, No Sputum, No Other Gastrointestinal: No Nausea, No Vomiting; Abdominal Pain; No Diarrhea, No Constipation, No Melena, No Hematochezia, No Other Genitourinary: No Dysuria, No Frequency, No Incontinence, No Hematuria, No Retention, No Other Musculoskeletal: No other, No neck pain, No shoulder pain, No arm pain, No back pain, No hand pain, No leg pain, No foot pain Skin: No Rash, No Lesions, No Jaundice, No Bruising, No Other Objective Vitals Vital Signs Date Time Temp Pulse Resp B/P (MAP) Pulse Ox O2 Delivery O2 Flow Rate FiO2 05/30/24 09:00 97.7 72 16 121/77 (92) 96 97.7 05/29/24 20:00 Room Air* 0 21 Intake/Output Intake and Output 05/30/24 07:00 Intake Total 1880 ml Balance 1880 ml Intake Oral 1780 ml IV Total 100 ml # Voids 7 Medications Current Medications Medications Dose Ordered Sig/Jenniffer Route Start Time Stop Time Status Last Admin Dose Admin Sodium Chloride 10 ml Q8HR IV 05/28/24 14:00 05/30/24 04:57 10 ML Acetaminophen/ Hydrocodone Bitart 1 tab Q4HP PRN PO 05/28/24 13:45 Ondansetron HCl 4 mg Q4HP PRN IV 05/28/24 13:45 Docusate Sodium 100 mg BIDPRN PRN PO 05/28/24 13:45 Piperacillin Sod/ Tazobactam Sod 100 ml @ 25 mls/hr Q8H IV 05/29/24 12:00 05/30/24 04:56 25 MLS/HR Acetaminophen 650 mg Q4HPRN PRN PO 05/30/24 10:15 UNV Laboratory Results Laboratory Tests 05/29/24 05:10 Urinalysis Test 05/28/24 10:30 Urine Color Yellow (Yellow) Urine Clarity Clear (Clear) Urine pH 5.5 (5.0-9.0) Urine Specific [place] 1.027 (1.001-1.035) Urine Protein Negative (Negative) Urine Ketones Negative (Negative) Urine Blood Negative /uL (Negative) Urine Nitrite Negative (Negative) Urine Bilirubin Negative (Negative) Urine Urobilinogen Normal mg/dL (Negative) Urine Leukocyte Esterase Trace /uL (Negative) Urine RBC 1 /hpf (0 - 4) Urine Microscopic WBC 2 /HPF (0-5) Urine Squamous Epithelial Cells Few /hpf (<5) Urine Bacteria Few /hpf (None Seen) H Urine Mucus Few (None Seen) Urine Glucose Normal mg/dL (Normal) Urine Test Negative (Negative) Assessment/Plan Assessment/Plan Right upper quadrant abdominal pain Acute cholelithiasis without cholecystitis: Arnoldo Wood Choledocholithiasis: Consult by GI Dr. Jaimee Schilling. Appreciated, reconsult for GI motion picture printer Dr. Klein Persistent right upper quadrant pain with cholelithiasis and choledocholithiasis by MRCP: Consult for surgeon Dr. Jefferson Schilling PCP Dr Leslie Plan discussed with: Patient Date of Service: May 30, 2024 Billing Provider: VIJAYA WESTBROOK MD Common Visit Codes: [id number] INP/OBS CARE(HIGH) VIJAYA WESTBROOK MD May 30, 2024 10:49
[2024-05-30 11:19] LABS: Basophils # (auto) 0 10 ^3/uL (0-0.2); Basophils % (auto) 0.6 % (0.0-2.0); Eosinophils # (auto) 0.7 10 ^3/uL (0-0.8); Eosinophils % (auto) 9.2 % (0.0-7.0); Hematocrit 43.9 % (36.0-46.0); Hemoglobin 14.9 g/dL (12.2-16.2); Lymphocytes # (auto) 2.2 10 ^3/uL (0.4-5.4); Lymphocytes % (auto) 30.1 % (10.0-50.0); Mean Corpuscular Hemoglobin 29.8 pg (28.0-32.0); Mean Corpuscular Hgb Conc. 33.9 g/dL (32.0-36.0); Monocytes # (auto) 0.6 10 ^3/uL (0-1.3); Monocytes % (auto) 8.1 % (0.0-12.0); Neutrophils # (auto) 3.9 10 ^3/uL (1.6-8.6); Nucleated Red Blood Cells % 0.1 %; Platelet Count (auto) 372 10^3/uL (140-450); Red Cell Distribution Width 13.2 % (11.8-14.3); White Blood Cell 7.5 10^3/uL (4.4-10.8)
[2024-05-30 11:31] LABS: Alanine Aminotransferase 25 U/L (7-40); Albumin 4.4 g/dL (3.2-4.8); Calcium 9.4 mg/dL (8.7-10.4)
[2024-05-30 11:32] LABS: Anion Gap 10 (5-15); Aspartate Aminotransferase 19 U/L (13-40); BUN/Creatinine Ratio 12.3 (10.0-20.0); Bilirubin, Total 1.1 mg/dL (0.2-1.0); Glucose 93 mg/dL (74-106); Sodium 138 mmol/L (136-145); Total Protein 7.1 g/dL (5.7-8.2)
[2024-05-30 11:34] LABS: Alkaline Phosphatase 126 U/L (46-116); Blood Urea Nitrogen 9 mg/dL (9-23); Carbon Dioxide 20 mmol/L (20-31); Chloride 108 mmol/L (98-107)
[2024-05-30] MEDS: ACETAMINOPHEN 325 MG TAB PO PRN (11:36)
[2024-05-30 13:00] VITALS: BP 125/72; PULSE 67; RESP 16; TEMP 97.6; O2SAT 97
--- NOTE | 2024-05-30 16:12 | DVHINCON2 ---
Date of service: May 30, 2024 Allergies: Coded Allergies: NO KNOWN ALLERGIES (Unverified , 01/14/24) Current Medications Current Medications Medications (Trade) Dose Ordered Sig/Jenniffer Route PRN Reason Start Time Stop Time Status Last Admin Acetaminophen (Tylenol Tablet) 650 mg Q4HPRN PRN PO PAIN SCALE 1-3 OR TEMP>100.4 05/30/24 10:15 05/30/24 11:36 Vital Signs Vital Signs Date Time Temp Pulse Resp B/P (MAP) Pulse Ox O2 Delivery O2 Flow Rate FiO2 05/30/24 13:00 97.6 67 16 125/72 (89) 97 97.6 05/30/24 08:00 Room Air* 0 21 Labs/Diagnostic Data Labs Test 05/30/24 10:28 05/28/24 10:30 Range/Units White Blood Count 7.5 4.4-10.8 10^3/uL Red Blood Count 5.00 4.0-5.20 10^6/uL Hemoglobin 14.9 12.2-16.2 g/dL Hematocrit 43.9 36.0-46.0 % Mean Corpuscular Volume 88.0 80.0-100.0 fL Mean Corpuscular Hemoglobin 29.8 28.0-32.0 pg Mean Corpuscular Hemoglobin Concent 33.9 32.0-36.0 g/dL Red Cell Distribution Width 13.2 11.8-14.3 % Platelet Count 372 140-450 10^3/uL Mean Platelet Volume 8.6 6.9-10.8 fL Neutrophils (%) (Auto) 52.0 37.0-80.0 % Lymphocytes (%) (Auto) 30.1 10.0-50.0 % Monocytes (%) (Auto) 8.1 0.0-12.0 % Eosinophils (%) (Auto) 9.2 H 0.0-7.0 % Basophils (%) (Auto) 0.6 0.0-2.0 % Neutrophils # (Auto) 3.9 1.6-8.6 10 ^3/uL Lymphocytes # (Auto) 2.2 0.4-5.4 10 ^3/uL Monocytes # (Auto) 0.6 0-1.3 10 ^3/uL Eosinophils # (Auto) 0.7 0-0.8 10 ^3/uL Basophils # (Auto) 0 0-0.2 10 ^3/uL Nucleated Red Blood Cells 0.1 % Sodium Level 138 136-145 mmol/L Potassium Level 4.0 3.5-5.1 mmol/L Chloride Level 108 H 98-107 mmol/L Carbon Dioxide Level 20 20-31 mmol/L Anion Gap 10 5-15 Blood Urea Nitrogen 9 9-23 mg/dL Creatinine 0.73 0.550-1.02 mg/dL Glomerular Filtration Rate Calc 106 >90 mL/min BUN/Creatinine Ratio 12.3 10.0-20.0 Serum Glucose 93 74-106 mg/dL Calcium Level 9.4 8.7-10.4 mg/dL Total Bilirubin 1.1 H 0.2-1.0 mg/dL Aspartate Amino Transferase (AST) 19 13-40 U/L Alanine Aminotransferase (ALT) 25 7-40 U/L Alkaline Phosphatase 126 H 46-116 U/L Total Protein 7.1 5.7-8.2 g/dL Albumin 4.4 3.2-4.8 g/dL Urine Color Yellow Yellow Urine Clarity Clear Clear Urine pH 5.5 5.0-9.0 Urine Specific [place] 1.027 1.001-1.035 Urine Protein Negative Negative Urine Ketones Negative Negative Urine Blood Negative Negative /uL Urine Nitrite Negative Negative Urine Bilirubin Negative Negative Urine Urobilinogen Normal Negative mg/dL Urine Leukocyte Esterase Trace Negative /uL Urine RBC 1 0 - 4 /hpf Urine Microscopic WBC 2 0-5 /HPF Urine Squamous Epithelial Cells Few <5 /hpf Urine Bacteria Few H None Seen /hpf Urine Mucus Few None Seen Urine Glucose Normal Normal mg/dL Urine Test Negative Negative Assessment 75215 R/O AC CHOLECYSTITIS MRCP CBD STONE CONSIDER TRANSFER TO HIGHER LEVEL OF CARE FOR ERCP CONSIDER SURGERY BASED ON ONGOING EVAL Plan discussed with: Patient SUZANNE ALMEIDA MD May 30, 2024 16:12
[2024-05-30 17:00] VITALS: BP 127/70; PULSE 52; RESP 16; TEMP 97.3; O2SAT 95
[2024-05-30 21:00] VITALS: BP 136/81; PULSE 62; RESP 19; TEMP 97.6; O2SAT 96
--- NOTE | 2024-05-30 22:52 | DVHINCON2 ---
DATE OF CONSULTATION: 05/30/2024 HISTORY OF PRESENT ILLNESS: This patient is 43 years old, coming in with right upper quadrant pain off and on. She was diagnosed with gallstones. Surgery was recommended, but the patient did not have surgery and this pain got worse, she came to the hospital and got admitted. I was asked to see her. Right now, her pain is in the right upper abdomen and in the upper abdomen as well. Some nausea, no vomiting. No constipation, diarrhea. No hematemesis, melena. No bleeding per rectum. PAST MEDICAL HISTORY: No diabetes, hypertension. PAST SURGICAL HISTORY: . PHYSICAL EXAMINATION: VITAL SIGNS: Afebrile, stable signs. HEENT: With no evidence of pallor, cyanosis, or jaundice. NECK: Supple, nontender with no thyromegaly, lymphadenopathy. CHEST AND LUNGS: Clear. HEART: Within normal limits. ABDOMEN: Soft, tender in right upper quadrant. Minimal rebound. EXTREMITIES: Unremarkable. NEUROLOGIC: Intact. CLINICAL IMPRESSION: Rule out acute cholecystitis. MRCP is indicating past presence of a CBD stones and that could be causing biliary colic as well as a possible cholangitis. Lab data, the white cell count is within normal limits. Chemistry is mildly elevated alkaline phosphatase. PLAN: Plan will be to consider a preoperative ERCP, for which she needs to be transferred to higher level of care and then once that is accomplished, then she can have gallbladder surgery following that. MD TYESHA Locke/KENNEDY TID: [id number] RECEIPT: [id number] cc: Jeramy Carrillo MD
[2024-05-31] VITALS (7 sets, daily range): BP systolic 115–142; BP diastolic 68–83; PULSE 53–77; RESP 18–19; TEMP 97.5–97.8; O2SAT 93–98
--- NOTE | 2024-05-31 07:57 | DVHINCON2 ---
Date of service: May 31, 2024 Referring Physician Jeramy Carrillo Reason for Consultation Abdominal pain Choledocholithiasis Cholelithiasis History of Present Illness The patient is a 43-year-old female admitted with abdominal pain in the right upper quadrant, associated with nausea but no vomiting, found to have gallstones and a dilated common bile duct. Subsequent MRCP showed choledocholithiasis. Patient is pending transfer to higher level of care for ERCP. Patient stated the pain is improved with pain medication. She denies any fevers or chills, chest pain or shortness of breath. She denies any pruritis. Past Medical History Denies Past Surgical History section Family History No GI diseases or malignancies in the family Social History No tobacco, alcohol, or recreational drug use Allergies: Coded Allergies: NO KNOWN ALLERGIES (Unverified , 01/14/24) Current Medications Current Medications Medications (Trade) Dose Ordered Sig/Jenniffer Route PRN Reason Start Time Stop Time Status Last Admin Acetaminophen (Tylenol Tablet) 650 mg Q4HPRN PRN PO PAIN SCALE 1-3 OR TEMP>100.4 05/30/24 10:15 05/31/24 05:13 Review of Systems 12 point review of systems completely negative other than HPI Vital Signs Vital Signs Date Time Temp Pulse Resp B/P (MAP) Pulse Ox O2 Delivery O2 Flow Rate FiO2 05/31/24 05:00 97.5 77 19 115/74 (88) 97 97.5 05/30/24 20:00 Room Air* 0 21 Physical Exam General: Alert and oriented x4 no distress HEENT: Normocephalic atraumatic extraocular moves were intact, pupils equal round react to light and accommodating Heart: Regular rate and rhythm Abdomen: Soft, right upper quadrant tenderness to palpation, with guarding Extremity: No clubbing cyanosis or edema Labs/Diagnostic Data Labs Test 05/30/24 10:28 05/28/24 10:30 Range/Units White Blood Count 7.5 4.4-10.8 10^3/uL Red Blood Count 5.00 4.0-5.20 10^6/uL Hemoglobin 14.9 12.2-16.2 g/dL Hematocrit 43.9 36.0-46.0 % Mean Corpuscular Volume 88.0 80.0-100.0 fL Mean Corpuscular Hemoglobin 29.8 28.0-32.0 pg Mean Corpuscular Hemoglobin Concent 33.9 32.0-36.0 g/dL Red Cell Distribution Width 13.2 11.8-14.3 % Platelet Count 372 140-450 10^3/uL Mean Platelet Volume 8.6 6.9-10.8 fL Neutrophils (%) (Auto) 52.0 37.0-80.0 % Lymphocytes (%) (Auto) 30.1 10.0-50.0 % Monocytes (%) (Auto) 8.1 0.0-12.0 % Eosinophils (%) (Auto) 9.2 H 0.0-7.0 % Basophils (%) (Auto) 0.6 0.0-2.0 % Neutrophils # (Auto) 3.9 1.6-8.6 10 ^3/uL Lymphocytes # (Auto) 2.2 0.4-5.4 10 ^3/uL Monocytes # (Auto) 0.6 0-1.3 10 ^3/uL Eosinophils # (Auto) 0.7 0-0.8 10 ^3/uL Basophils # (Auto) 0 0-0.2 10 ^3/uL Nucleated Red Blood Cells 0.1 % Sodium Level 138 136-145 mmol/L Potassium Level 4.0 3.5-5.1 mmol/L Chloride Level 108 H 98-107 mmol/L Carbon Dioxide Level 20 20-31 mmol/L Anion Gap 10 5-15 Blood Urea Nitrogen 9 9-23 mg/dL Creatinine 0.73 0.550-1.02 mg/dL Glomerular Filtration Rate Calc 106 >90 mL/min BUN/Creatinine Ratio 12.3 10.0-20.0 Serum Glucose 93 74-106 mg/dL Calcium Level 9.4 8.7-10.4 mg/dL Total Bilirubin 1.1 H 0.2-1.0 mg/dL Aspartate Amino Transferase (AST) 19 13-40 U/L Alanine Aminotransferase (ALT) 25 7-40 U/L Alkaline Phosphatase 126 H 46-116 U/L Total Protein 7.1 5.7-8.2 g/dL Albumin 4.4 3.2-4.8 g/dL Urine Color Yellow Yellow Urine Clarity Clear Clear Urine pH 5.5 5.0-9.0 Urine Specific [place] 1.027 1.001-1.035 Urine Protein Negative Negative Urine Ketones Negative Negative Urine Blood Negative Negative /uL Urine Nitrite Negative Negative Urine Bilirubin Negative Negative Urine Urobilinogen Normal Negative mg/dL Urine Leukocyte Esterase Trace Negative /uL Urine RBC 1 0 - 4 /hpf Urine Microscopic WBC 2 0-5 /HPF Urine Squamous Epithelial Cells Few <5 /hpf Urine Bacteria Few H None Seen /hpf Urine Mucus Few None Seen Urine Glucose Normal Normal mg/dL Urine Test Negative Negative Assessment 1. Cholelithiasis 2. Choledocholithiasis 3. Abdominal pain 4. Fatty liver Problems(with codes): (1) Cholelithiases (2) Nonspecific abdominal pain Plan/Recommendation 1. Transfer to outside facility for ERCP 2. Pain control 3. Keep the patient NPO for now 4. Off follow until transfer Plan discussed with: Patient OLIVIA MARTINEZ MD May 31, 2024 07:57
--- NOTE | 2024-05-31 11:02 | DVHPN2 ---
Reviewed: Care Plan, H&P, Labs, Medications, Previous Orders, Radiology Changes from previous H/P or p: No Changes Eyes: No Pain, No Vision change, No Conjunctivae inflammation, No Eyelid inflammation, No Other, No Redness ENT: No Ear pain, No Ear discharge, No Nose pain, No Nose discharge, No Nose congestion, No Mouth pain, No Mouth swelling, No Throat pain, No Throat swelling, No Other Cardiovascular: No Chest Pain, No Palpitations, No Orthopnea, No Paroxysmal Noc. Dyspnea, No Edema, No Lt Headedness, No Other Respiratory: No Cough, No Dry, No Shortness of breath, No SOB with excertion, No Wheezing, No Hemoptysis, No Pleuritic Pain, No Sputum, No Other Gastrointestinal: No Nausea, No Vomiting; Abdominal Pain; No Diarrhea, No Constipation, No Melena, No Hematochezia, No Other Genitourinary: No Dysuria, No Frequency, No Incontinence, No Hematuria, No Retention, No Other Musculoskeletal: No other, No neck pain, No shoulder pain, No arm pain, No back pain, No hand pain, No leg pain, No foot pain Skin: No Rash, No Lesions, No Jaundice, No Bruising, No Other Objective Vitals Vital Signs Date Time Temp Pulse Resp B/P (MAP) Pulse Ox O2 Delivery O2 Flow Rate FiO2 05/31/24 09:00 97.8 57 18 142/83 (102) 98 97.8 05/30/24 20:00 Room Air* 0 21 Intake/Output Intake and Output 05/31/24 07:00 Intake Total 1355 ml Balance 1355 ml Intake Oral 755 ml IV Total 600 ml # Voids 10 # Bowel Movements 3 Medications Current Medications Medications Dose Ordered Sig/Jenniffer Route Start Time Stop Time Status Last Admin Dose Admin Sodium Chloride 10 ml Q8HR IV 05/28/24 14:00 05/31/24 05:09 10 ML Acetaminophen/ Hydrocodone Bitart 1 tab Q4HP PRN PO 05/28/24 13:45 Ondansetron HCl 4 mg Q4HP PRN IV 05/28/24 13:45 Docusate Sodium 100 mg BIDPRN PRN PO 05/28/24 13:45 Piperacillin Sod/ Tazobactam Sod 100 ml @ 25 mls/hr Q8H IV 05/29/24 12:00 05/31/24 05:09 25 MLS/HR Acetaminophen 650 mg Q4HPRN PRN PO 05/30/24 10:15 05/31/24 05:13 650 MG Laboratory Results Laboratory Tests 05/30/24 10:28 Urinalysis Test 05/28/24 10:30 Urine Color Yellow (Yellow) Urine Clarity Clear (Clear) Urine pH 5.5 (5.0-9.0) Urine Specific [place] 1.027 (1.001-1.035) Urine Protein Negative (Negative) Urine Ketones Negative (Negative) Urine Blood Negative /uL (Negative) Urine Nitrite Negative (Negative) Urine Bilirubin Negative (Negative) Urine Urobilinogen Normal mg/dL (Negative) Urine Leukocyte Esterase Trace /uL (Negative) Urine RBC 1 /hpf (0 - 4) Urine Microscopic WBC 2 /HPF (0-5) Urine Squamous Epithelial Cells Few /hpf (<5) Urine Bacteria Few /hpf (None Seen) H Urine Mucus Few (None Seen) Urine Glucose Normal mg/dL (Normal) Urine Test Negative (Negative) Labs and/or images reviewed: Labs reviewed by me, Image(s) reviewed by me Assessment/Plan Assessment/Plan Right upper quadrant abdominal pain Acute cholelithiasis without cholecystitis: Arnoldo Wood Choledocholithiasis: Consult by GI Dr. lKein appreciated. Consult by surgeon Dr. Jefferson Schilling appreciated, advised transfer to higher level of for ERCP History of hep B PCP Dr Leslie Plan discussed with: Patient Date of Service: May 31, 2024 Billing Provider: VIJAYA WESTBROOK MD Common Visit Codes: [id number] INP/OBS CARE(HIGH) VIJAYA WESTBROOK MD May 31, 2024 11:02
--- NOTE | 2024-05-31 11:07 | DVHDS2 ---
Discharge Summary Date of Admission May 28, 2024 at 13:41 Date of Discharge: May 31, 2024 Admitting Diagnosis Right upper quadrant abdominal pain Wounds: None Labs/Diagnostic Data: Laboratory Results Test 05/31/24 10:00 05/30/24 10:28 05/28/24 10:30 White Blood Count 7.5 10^3/uL (4.4-10.8) Red Blood Count 5.00 10^6/uL (4.0-5.20) Hemoglobin 14.9 g/dL (12.2-16.2) Hematocrit 43.9 % (36.0-46.0) Mean Corpuscular Volume 88.0 fL (80.0-100.0) Mean Corpuscular Hemoglobin 29.8 pg (28.0-32.0) Mean Corpuscular Hemoglobin Concent 33.9 g/dL (32.0-36.0) Red Cell Distribution Width 13.2 % (11.8-14.3) Platelet Count 372 10^3/uL (140-450) Mean Platelet Volume 8.6 fL (6.9-10.8) Neutrophils (%) (Auto) 52.0 % (37.0-80.0) Lymphocytes (%) (Auto) 30.1 % (10.0-50.0) Monocytes (%) (Auto) 8.1 % (0.0-12.0) Eosinophils (%) (Auto) 9.2 % (0.0-7.0) Basophils (%) (Auto) 0.6 % (0.0-2.0) Neutrophils # (Auto) 3.9 10 ^3/uL (1.6-8.6) Lymphocytes # (Auto) 2.2 10 ^3/uL (0.4-5.4) Monocytes # (Auto) 0.6 10 ^3/uL (0-1.3) Eosinophils # (Auto) 0.7 10 ^3/uL (0-0.8) Basophils # (Auto) 0 10 ^3/uL (0-0.2) Nucleated Red Blood Cells 0.1 % Sodium Level 138 mmol/L (136-145) Potassium Level 4.0 mmol/L (3.5-5.1) Chloride Level 108 mmol/L (98-107) Carbon Dioxide Level 20 mmol/L (20-31) Anion Gap 10 (5-15) Blood Urea Nitrogen 9 mg/dL (9-23) Creatinine 0.73 mg/dL (0.550-1.02) Glomerular Filtration Rate Calc 106 mL/min (>90) BUN/Creatinine Ratio 12.3 (10.0-20.0) Serum Glucose 93 mg/dL (74-106) Calcium Level 9.4 mg/dL (8.7-10.4) Total Bilirubin 1.1 mg/dL (0.2-1.0) Aspartate Amino Transferase (AST) 19 U/L (13-40) Alanine Aminotransferase (ALT) 25 U/L (7-40) Alkaline Phosphatase 126 U/L (46-116) Total Protein 7.1 g/dL (5.7-8.2) Albumin 4.4 g/dL (3.2-4.8) Urine Color Yellow (Yellow) Urine Clarity Clear (Clear) Urine pH 5.5 (5.0-9.0) Urine Specific [place] 1.027 (1.001-1.035) Urine Protein Negative (Negative) Urine Ketones Negative (Negative) Urine Blood Negative /uL (Negative) Urine Nitrite Negative (Negative) Urine Bilirubin Negative (Negative) Urine Urobilinogen Normal mg/dL (Negative) Urine Leukocyte Esterase Trace /uL (Negative) Urine RBC 1 /hpf (0 - 4) Urine Microscopic WBC 2 /HPF (0-5) Urine Squamous Epithelial Cells Few /hpf (<5) Urine Bacteria Few /hpf (None Seen) Urine Mucus Few (None Seen) Urine Glucose Normal mg/dL (Normal) Urine Test Negative (Negative) Other Laboratory Tests 05/30/24 10:28 Brief Hx & Hospital Course: 3-year-old female came in with right upper quadrant abdominal pain found to have acute cholelithiasis without cholecystitis and choledocholithiasis by MRCP GI consult by Dr. Klein and surgical consult by Dr. Jefferson Schilling . advised transfer to higher level of care for ERCP orders placed. Consults/Reason for consult GI Dr. Klein Surgeon Dr. Jefferson Schilling Operations or Procedures CT abdomen pelvis without contrast MRCP Condition at Discharge: Fair Final Diagnosis/Problems List Right upper quadrant abdominal pain Acute cholelithiasis without cholecystitis: Arnoldo Wood Choledocholithiasis: Consult by GI Dr. Klein appreciated. Consult by surgeon Dr. Jefferson Schilling appreciated, advised transfer to higher level of for ERCP History of hep B Discharge Disposition: Acute Care Facility Discharge Instruct/Medications Diet: Regular Activity: Light activity Follow Up/Referral: With the receiving hospital Medications: see list 35 (Time taken for discharge summary 35 minutes) Discharge Statement: "Patient was advised to return to the ER or call 911 if any headaches, dizziness, shortness of breath, chest pain, abdominal pain, bleeding, fevers, or worsening of medical condition. Patient was counseled about treatment plan, medications, possible side effects, patientverbalized understanding. All questions were answered to the best of my ability. This discharge took greater then 30 minutes in planning, reviewing documentation, counseling the patient, and discussing with other team members." ASSESSMENT ASSESSMENT Hospital Course Marginal improvement Assessment Right upper quadrant abdominal pain Acute cholelithiasis without cholecystitis: Arnoldo Wood Choledocholithiasis: Consult by GI Dr. Klein appreciated. Consult by surgeon Dr. Jefferson Schilling appreciated, advised transfer to higher level of for ERCP History of hep B Date of Service: May 31, 2024 Billing Provider: VIJAYA WESTBROOK MD Common Visit Codes: 40078-ARD/OBS DISCH DAY >30min VIJAYA WESTBROOK MD May 31, 2024 11:07
[2024-05-31 18:13] LABS: COVID19 ANTIGEN SOFIA FIA NEGATIVE (NEGATIVE)
[2024-06-02 11:42] LABS: Hepatitis A Ab IgM Negative; Hepatitis B Core IgM Negative (Negative); Hepatitis B Surface Antigen Negative (Negative); Hepatitis C Antibody Negative (Negative)
== END 2024-05-31 20:19 | disposition short-term general hospital (02) ==
LOC: ER 08:50 → OVERFLOW 13:41 → EAST 22:47
PROVIDERS: ADMIT Family Medicine; ATTEND Family Medicine
DX: K80.70 Calculus of gallbladder and bile duct without cholecystitis without obstruction (principal); K76.0 Fatty (change of) liver, not elsewhere classified; K29.00 Acute gastritis without bleeding; Z20.822 Contact with and (suspected) exposure to COVID-19; Z83.3 Family history of diabetes mellitus; Z90.710 Acquired absence of both cervix and uterus; Z79.899 Other long term (current) drug therapy
CPT/HCPCS: 36415; 71045; 74176; 74181; 76705; 80048; 80053; 80074; 81001; 81025; 85025; 87426; G0378; J2543

== ENCOUNTER 2025-01-17 11:08 | Emergency (ER) | payer MEDICAID ==
[~2025-01-17] VITALS: Ht 160 cm; Wt 81.9 kg
[2025-01-17 11:10] VITALS: BP 154/91; PULSE 83; RESP 18; TEMP 98; O2SAT 98
== END 2025-01-17 12:49 | disposition left against medical advice (07) ==
LOC: ER 11:08
DX: R07.89 Other chest pain (principal); Z79.899 Other long term (current) drug therapy